=== PATIENT | male | born 1960 | race African-American/Black ===

== ENCOUNTER 2017-02-22 08:31 | Emergency (ER) | payer OTHER ==
[~2017-02-22] VITALS: Ht 190.5 cm; Wt 123.8 kg
[~2017-02-22 08:31] MED LIST: ASPI81TA82 PO; ATEN-102 PO; GABA300C3 PO; HYDR-2768 PO; LANTUS2P SC; LISI40TA PO; METF-324 PO; NAPR500 PO; NIFE30TA2 PO; NOVOLOGP2 SQ; PRAV20 PO
[2017-02-22 08:43] VITALS: BP 121/66; PULSE 63; RESP 16; TEMP 97.4; O2SAT 96
[2017-02-22] MEDS ORDERED: GABA300C5 PO (09:06)
[2017-02-22] MEDS ORDERED: NOVOLOGP2 SQ (09:06)
[2017-02-22] MEDS ORDERED: ATEN50TA PO (09:06)
[2017-02-22] MEDS ORDERED: ASPI81CH CHEW (09:06)
[2017-02-22] MEDS ORDERED: HYDR25TA5 PO (09:06)
[2017-02-22] MEDS ORDERED: LANTINJ SQ (09:06)
[2017-02-22] MEDS ORDERED: PRAV20TA2 PO (09:07)
[2017-02-22] MEDS ORDERED: LISI40TA PO (09:07)
[2017-02-22] MEDS ORDERED: NIFE30TA61 PO (09:07)
--- NOTE | 2017-02-22 09:08 | PD ---
HPI Chief Complaint: Diabetic Time Seen by Provider: 09:01 Travel History International Travel<30 days: No Contact w/Intl Traveler<30days: No Traveled to known affect area: No History of Present Illness HPI Patient presents with concerns of elevated blood sugar. Reports a.m. blood sugar greater than 600 on his home monitor. On arrival blood sugars 362. Admits to poor compliance with Lantus and insulin sliding scale since he has been moving. Denies any nausea vomiting diarrhea or fever. Past medical history for diabetes diabetic neuropathy and blindness. Denies hypertension or hyperlipidemia. States he has been feeling a little under the weather. Patient did eat breakfast. PFSH Past Medical History Cardiovascular Problems: Yes (htn on meds) High Cholesterol: Yes Diabetes: Yes (type 2 with insulin) Patient Takes Glucophage: No Diminished Hearing: No Hypertension: Yes Tetanus Vaccination: Unknown Influenza Vaccination: Yes Past Surgical History Surgical History: No Previous Surgery Social History Alcohol Use: No Tobacco Use: No (former) Substance Use: No Allergies-Medications (Allergen,Severity, Reaction): Coded Allergies: No Known Allergies (Unverified , 02/22/17) Reported Meds & Prescriptions Reported Meds & Active Scripts Active Reported Pravastatin 20 Mg Tab 20 Mg PO DAILY Nifedipine ER 24 HR (Nifedipine) 30 Mg Tab 30 Mg PO DAILY Lisinopril 40 Mg Tab 40 Mg PO DAILY Lantus Solostar Pen Inj (Insulin Glargine) 300 Unit/3 Ml Pen 50 Units SQ DAILY Novolog Inj (Insulin Aspart) 1,000 Unit/10 Ml Vial 0 SQ DIRECTED Sliding Scale as directed. Hydrochlorothiazide 25 Mg Tab 25 Mg PO DAILY Gabapentin 300 Mg Cap 300 Mg PO TID Atenolol 50 Mg Tab 75 Mg PO DAILY Aspirin 81 Mg Chew 81 Mg CHEW DAILY Review of Systems General / Constitutional: No: Fever Eyes: No: Visual changes HENT: No: Headaches Cardiovascular: No: Chest Pain or Discomfort Respiratory: No: Shortness of Breath Gastrointestinal: No: Abdominal Pain Genitourinary: No: Dysuria Musculoskeletal: No: Pain Skin: No Rash Neurologic: No: Weakness Psychiatric: No: Depression Endocrine: No: Polydipsia Hematologic/Lymphatic: No: Easy Bruising Physical Exam Narrative GENERAL: Well-nourished, well-developed patient. SKIN: Focused skin assessment warm/dry. HEAD: Normocephalic. EYES: No scleral icterus. No injection or drainage. NECK: Supple, trachea midline. No JVD or lymphadenopathy. CARDIOVASCULAR: Regular rate and rhythm without murmurs, gallops, or rubs. RESPIRATORY: Breath sounds equal bilaterally. No accessory muscle use. GASTROINTESTINAL: Abdomen soft, non-tender, nondistended. MUSCULOSKELETAL: No cyanosis, or edema. BACK: Nontender without obvious deformity. No CVA tenderness. Data Data Last Documented VS Vital Signs Date Time Temp Pulse Resp B/P Pulse Ox O2 Delivery O2 Flow Rate FiO2 02/22/17 08:43 97.4 63 16 121/66 96 Orders Sodium Chlorid 0.9% 500 Ml Inj (Ns 500 M (02/22/17 09:15) Insulin Human Regular Inj (Novolin R Inj (02/22/17 09:15) Comprehensive Metabolic Panel (02/22/17 09:01) Complete Blood Count With Diff (02/22/17 09:01) Beta Hydroxybutyrate (Acetone) (02/22/17 09:01) Urinalysis - C+S If Indicated (02/22/17 09:01) Blood Glucose (02/22/17 09:01) Blood Glucose (02/22/17 10:01) Ecg Monitoring (02/22/17 09:01) Iv Access Insert/Monitor (02/22/17 09:01) Oximetry (02/22/17 09:01) Labs Laboratory Tests Test 02/22/17 02/22/17 09:27 09:34 White Blood Count 7.2 TH/MM3 Red Blood Count 4.87 MIL/MM3 Hemoglobin 13.5 GM/DL Hematocrit 40.6 % Mean Corpuscular Volume 83.3 FL Mean Corpuscular Hemoglobin 27.7 PG Mean Corpuscular Hemoglobin 33.3 % Concent Red Cell Distribution Width 15.7 % Platelet Count 192 TH/MM3 Mean Platelet Volume 9.6 FL Neutrophils (%) (Auto) 53.0 % Lymphocytes (%) (Auto) 38.4 % Monocytes (%) (Auto) 6.5 % Eosinophils (%) (Auto) 1.1 % Basophils (%) (Auto) 1.0 % Neutrophils # (Auto) 3.7 TH/MM3 Lymphocytes # (Auto) 2.8 TH/MM3 Monocytes # (Auto) 0.5 TH/MM3 Eosinophils # (Auto) 0.1 TH/MM3 Basophils # (Auto) 0.1 TH/MM3 CBC Comment DIFF FINAL Differential Comment Sodium Level 134 MEQ/L Potassium Level 4.8 MEQ/L Chloride Level 104 MEQ/L Carbon Dioxide Level 21.9 MEQ/L Anion Gap 8 MEQ/L Blood Urea Nitrogen 48 MG/DL Creatinine 1.90 MG/DL Estimat Glomerular Filtration 45 ML/MIN Rate Random Glucose 344 MG/DL Calcium Level 9.6 MG/DL Total Bilirubin 0.9 MG/DL Aspartate Amino Transf 9 U/L (AST/SGOT) Alanine Aminotransferase 20 U/L (ALT/SGPT) Alkaline Phosphatase 75 U/L Total Protein 7.8 GM/DL Albumin 3.5 GM/DL B-Hydroxybutyrate 0.50 MMOL/L Urine Collection Type CLEAN CATCH Urine Color YELLOW Urine Turbidity CLEAR Urine pH 6.0 Urine Specific [place] 1.005 Urine Protein NEG mg/dL Urine Glucose (UA) 1000 OR GREATER mg/dL Urine Ketones NEG mg/dL Urine Occult Blood NEG Urine Nitrite NEG Urine Bilirubin NEG Urine Leukocyte Esterase NEG Urine RBC 0-3 /hpf Urine Squamous Epithelial 0-5 /hpf Cells Microscopic Urinalysis Comment CULT NOT INDICATED Urine Collection Time 09:34 [facility] Medical Decision Making Medical Screen Exam Complete: Yes Emergency Medical Condition: Yes Differential Diagnosis Ketoacidosis, HONK, hyperglycemia, medication noncompliance Narrative Course Assessment and plan discussed with patient and daughter at bedside. Urinalysis does not reveal really UTI however there is glycosuria. CBC within normal limits. CMP reveals an area Of 8 and renal insufficiency with a BUN/ creatinine of 48 /1.9 likely secondary to diabetes poor fluid intake. BHB not clinically significant. Repeat blood sugar 285 Diagnosis Primary Impression: Hyperglycemia Additional Impression: Renal insufficiency Patient Instructions: General Instructions Additional Instructions: Encourage good fluid intake, encouraged medication compliance, encouraged follow -up with PCP to discuss her blood sugar log. Return to emergency with any onset of new symptoms. Med/Other Pt SpecificInfo: No Meds Exist/No RX given Disposition: 01 DISCHARGE HOME Condition: Good Matheus Zaman MD Feb 22, 2017 09:08
[2017-02-22] MEDS ORDERED: SODIUM CHLORID 0.9% 500 ML INJ 500 ML IV ONE (09:15)
[2017-02-22] MEDS ORDERED: INSULIN HUMAN REGULAR 1,000 UNITS/10 ML VIAL SQ ONE (09:15)
[2017-02-22 09:40] LABS: AUTOMATED NEUTROPHIL # 3.7 TH/MM3 (1.8-7.7); BASOPHIL # 0.1 TH/MM3 (0-0.2); EOSINOPHIL # 0.1 TH/MM3 (0-0.4); EOSINOPHIL % 1.1 % (0.0-4.0); HEMATOCRIT 40.6 % (39.0-51.0); HEMO FLAGS DIFF FINAL; LYMPH % 38.4 % (9.0-44.0); LYMPHOCYTE # 2.8 TH/MM3 (1.0-4.8); MEAN CELL VOLUME 83.3 FL (80.0-100.0); MEAN CORPUSCULAR HEMOGLOBIN 27.7 PG (27.0-34.0); MEAN CORPUSCULAR HGB CONC 33.3 % (32.0-36.0); MONO % 6.5 % (0.0-8.0); PLATELET COUNT 192 TH/MM3 (150-450); RED BLOOD COUNT 4.87 MIL/MM3 (4.50-5.90); RED CELL DISTRIBUTION WIDTH 15.7 % (11.6-17.2); WHITE BLOOD COUNT 7.2 TH/MM3 (4.0-11.0)
[2017-02-22 09:43] LABS: BLOOD, URINE NEG (NEG); KETONE, URINE NEG (NEG); NITRITE,URINE NEG (NEG)
[2017-02-22 09:49] LABS: BICARBONATE 21.9 MEQ/L (21.0-32.0)
[2017-02-22 09:52] LABS: BLOOD UREA NITROGEN 48 MG/DL (7-18)
[2017-02-22 09:53] LABS: ALT (GPT) 20 U/L (12-78); AST (GOT) 9 U/L (15-37); GLOMERULAR FILTRATION RATE 45 ML/MIN (>89)
[2017-02-22 09:54] LABS: ANION GAP 8 MEQ/L (5-15); CHLORIDE 104 MEQ/L (98-107); POTASSIUM 4.8 MEQ/L (3.5-5.1); SODIUM (NA) 134 MEQ/L (136-145); TOTAL BILIRUBIN ADULT 0.9 MG/DL (0.2-1.0)
[2017-02-22 09:56] LABS: ALKALINE PHOSPHATASE 75 U/L (45-117)
[2017-02-22 09:57] LABS: GLUCOSE,URINE 1000 OR GREATER mg/dL (NEG); METHOD OF COLLECTION CLEAN CATCH; RBC, URINE 0-3 /hpf (0-3); SQUAMOUS EPITHELIAL CELL URINE 0-5 /hpf (0-5); URINE COLOR YELLOW (YELLW/STRAW)
[2017-02-22 09:58] LABS: COMMENT (UR) CULT NOT INDICATED; CULTURE IF INDICATED CULT NOT INDICATED
[2017-02-22 10:47] VITALS: BP 111/68
== END 2017-02-22 10:54 | disposition home or self-care (01) ==
LOC: PHED 08:31
DX: E11.65 Type 2 diabetes mellitus with hyperglycemia (principal); N28.9 Disorder of kidney and ureter, unspecified; Z79.4 Long term (current) use of insulin
CPT/HCPCS: 80053; 81001; 82010; 85025; 96372; 99284; J1815; J7040

== ENCOUNTER 2017-10-01 11:33 | Emergency (ER) | payer OTHER ==
[~2017-10-01] VITALS: Ht 190.5 cm; Wt 124.0 kg
[~2017-10-01 11:33] MED LIST changes: +ASPI-516 CHEW; -ASPI81TA82 PO; -ATEN-102 PO; +ATEN50TA PO; -GABA300C3 PO; +GABA300C5 PO; -HYDR-2768 PO; +HYDR25TA5 PO; +LANTINJ SQ; -LANTUS2P SC; -METF-324 PO; -NAPR500 PO; -NIFE30TA2 PO; +NIFE30TA61 PO; -PRAV20 PO; +PRAV20TA2 PO
[2017-10-01 11:42] VITALS: BP 135/72; PULSE 57; RESP 16; TEMP 97.6; O2SAT 97
[2017-10-01] MEDS ORDERED: SODIUM CHLOR 0.9% 1000 ML INJ 1,000 ML IV ONE (12:00)
--- NOTE | 2017-10-01 12:15 | PD ---
HPI Chief Complaint: Cold / Flu Symptoms Time Seen by Provider: 11:44 Travel History International Travel<30 days: No Contact w/Intl Traveler<30days: No Traveled to known affect area: No History of Present Illness HPI 57-year-old male presents to the ED for evaluation of colic symptoms since . Per patient is a type I diabetic and has been having cough, runny nose and weakness as well as nausea and vomiting diarrhea since . Patient comes here with daughter with Symptoms since Friday. Patient Got the Symptoms First. Per Patient He Does Not Check His Sugars He Does Not Have a Glucometer. He Does Give Himself Insulin. Patient Has Been Urinating More Frequently Than Usual. Patient Has Been Able to Keep Fluids down but He Is Not Sure If He Has Been Dehydrated. He States That He Feels Nauseous Sometimes and Vomits. Denies any abdominal pain. Denies any chest pain or shortness of breath. Has not seen anybody for this. He did got the flu shot. Denies any recent travel. No other medical issues. PFSH Past Medical History Cardiovascular Problems: Yes (htn on meds) High Cholesterol: Yes Diabetes: Yes (type 2 with insulin) Patient Takes Glucophage: No Diminished Hearing: No Hypertension: Yes Tetanus Vaccination: Unknown Influenza Vaccination: Yes Social History Alcohol Use: No Tobacco Use: No (former) Substance Use: No Allergies-Medications (Allergen,Severity, Reaction): Coded Allergies: No Known Allergies (Unverified Adverse Reaction, Unknown, 10/01/17) Reported Meds & Prescriptions Reported Meds & Active Scripts Active Tessalon Perles (Benzonatate) 100 Mg Cap 200 Mg PO TID PRN Amoxicillin 875 Mg Tab 875 Mg PO BID 10 Days Reported Pravastatin 20 Mg Tab 20 Mg PO DAILY Nifedipine ER 24 HR (Nifedipine) 30 Mg Tab 30 Mg PO DAILY Lisinopril 40 Mg Tab 40 Mg PO DAILY Lantus Solostar Pen Inj (Insulin Glargine) 300 Unit/3 Ml Pen 50 Units SQ DAILY Novolog Inj (Insulin Aspart) 1,000 Unit/10 Ml Vial 0 SQ DIRECTED Sliding Scale as directed. Hydrochlorothiazide 25 Mg Tab 25 Mg PO DAILY Gabapentin 300 Mg Cap 300 Mg PO TID Atenolol 50 Mg Tab 75 Mg PO DAILY Aspirin 81 Mg Chew 81 Mg CHEW DAILY Review of Systems Except as stated in HPI: all other systems reviewed are Neg Physical Exam Narrative GENERAL: Well-nourished, well-developed patient in no apparent distress. SKIN: Warm and dry. HEAD: Atraumatic. Normocephalic. EYES: Pupils equal and round reactive to light and accommodation. No scleral icterus. No injection or drainage. ENT: No nasal bleeding or discharge. Mucous membranes pink and moist. TMs are clear with no sign of infection or perforation. No mastoid tenderness. Ear canals are intact bilaterally. No lymphadenopathy. Nostril mucosa is red and moist with clear mucus noted. No sinus tenderness to palpation noted. Tonsils are not enlarged or swollen. No ulvua Deviation. Tongue is midline. NECK: Trachea midline. No JVD. No meningeal signs noted CARDIOVASCULAR: Regular rate and rhythm. RESPIRATORY: No accessory muscle use. Clear to auscultation. Breath sounds equal bilaterally. GASTROINTESTINAL: Abdomen soft, non-tender, nondistended. Hepatic and splenic margins not palpable. MUSCULOSKELETAL: Extremities without clubbing, cyanosis, or edema. No obvious deformities. Full range of motion of the upper and lower extremities bilaterally. 2+ pulses bilaterally. NEUROLOGICAL: Awake and alert. No obvious cranial nerve deficits. Motor grossly within normal limits. Five out of 5 muscle strength in the arms and legs. Normal speech. PSYCHIATRIC: Appropriate mood and affect; insight and judgment normal. Data Data Last Documented VS Vital Signs Date Time Temp Pulse Resp B/P (MAP) Pulse Ox O2 Delivery O2 Flow Rate FiO2 10/01/17 12:44 16 97 Room Air 10/01/17 11:42 97.6 57 135/72 (93) Orders Orders Complete Blood Count With Diff (10/01/17 11:56) Comprehensive Metabolic Panel (10/01/17 11:56) Blood Culture (10/01/17 11:56) Lipase (10/01/17 11:56) Magnesium (Mg) (10/01/17 11:56) Beta Hydroxybutyrate (Acetone) (10/01/17 11:56) Chest, Single Ap (10/01/17 11:56) Iv Access Insert/Monitor (10/01/17 11:56) Ecg Monitoring (10/01/17 11:56) Oximetry (10/01/17 11:56) Blood Glucose (10/01/17 11:56) Influenzae A/B Antigen (10/01/17 11:56) Sodium Chlor 0.9% 1000 Ml Inj (Ns 1000 M (10/01/17 12:00) Ed Discharge Order (10/01/17 13:12) Labs Laboratory Tests Test 10/01/17 12:28 White Blood Count 4.8 TH/MM3 Red Blood Count 4.71 MIL/MM3 Hemoglobin 12.8 GM/DL Hematocrit 39.5 % Mean Corpuscular Volume 83.8 FL Mean Corpuscular Hemoglobin 27.3 PG Mean Corpuscular Hemoglobin Concent 32.5 % Red Cell Distribution Width 14.9 % Platelet Count 169 TH/MM3 Mean Platelet Volume 8.7 FL Neutrophils (%) (Auto) 32.9 % Lymphocytes (%) (Auto) 57.3 % Monocytes (%) (Auto) 7.5 % Eosinophils (%) (Auto) 1.4 % Basophils (%) (Auto) 0.9 % Neutrophils # (Auto) 1.6 TH/MM3 Lymphocytes # (Auto) 2.7 TH/MM3 Monocytes # (Auto) 0.4 TH/MM3 Eosinophils # (Auto) 0.1 TH/MM3 Basophils # (Auto) 0.0 TH/MM3 CBC Comment DIFF FINAL Differential Comment Blood Urea Nitrogen 13 MG/DL Creatinine 1.40 MG/DL Random Glucose 153 MG/DL Total Protein 7.4 GM/DL Albumin 2.8 GM/DL Calcium Level 8.4 MG/DL Magnesium Level 2.1 MG/DL Alkaline Phosphatase 76 U/L Aspartate Amino Transf (AST/SGOT) 33 U/L Alanine Aminotransferase (ALT/SGPT) 35 U/L Total Bilirubin 0.8 MG/DL Sodium Level 141 MEQ/L Potassium Level 3.6 MEQ/L Chloride Level 110 MEQ/L Carbon Dioxide Level 23.7 MEQ/L Anion Gap 7 MEQ/L Estimat Glomerular Filtration Rate 63 ML/MIN Lipase 184 U/L MDM Medical Decision Making Medical Screen Exam Complete: Yes Emergency Medical Condition: Yes Medical Record Reviewed: Yes Interpretation(s) CBC & BMP Diagram 10/01/17 12:28 Total Protein 7.4, Albumin 2.8 L, Calcium Level 8.4 L, Magnesium Level 2.1, Alkaline Phosphatase 76, Aspartate Amino Transf (AST/SGOT) 33, Alanine Aminotransferase (ALT/SGPT) 35, Total Bilirubin 0.8 Last Impressions Chest X-Ray 10/01/17 1786 Signed Impressions: Service Date/Time: Sunday, October 01, 2017 12:02 - CONCLUSION: No acute disease. Skyler Grajeda MD lipase WNL Differential Diagnosis Hyperglycemia versus dehydration versus DKA versus influenza versus pneumonia versus URI versus otitis media Narrative Course 57-year-old male presents to the ED for evaluation of cold like symptoms. Patient was properly examined and was found to have signs and symptoms consistent with appears to be otitis media. Patient also appear to have polyuria as well as nausea and vomiting and some diarrhea. He is a type I diabetic and she does not check his sugars secondary to not having a glucometer. We will do basic labs the patient IV fluids to rule out any sign of dehydration or DKA. Labs and imaging showed no significant disease. Sugar appears to be within normal limits. More importantly no sign of DKA. Slight dehydration. Patient was given IV fluids. Patient was told results. Patient does appear to have otitis media on exam. Will treat with amoxicillin and Tessalon Perles. Told to follow-up with PCP. See ED if worsening symptoms. OTC meds as needed. Diagnosis Primary Impression: Otitis media Qualified Codes: H66.002 - Acute suppurative otitis media without spontaneous rupture of ear drum, left ear Additional Impression: Dehydration, mild Patient Instructions: General Instructions Additional Instructions: Motrin and Tylenol for pain and fever. You can use [id number] antihistamine as well as well as Mucinex as needed for runny nose and congestion. Cough drops for cough as needed. Drink plenty of fluids. Follow-up with PCP. See ED for worsening symptoms. Med/Other Pt SpecificInfo: Prescription(s) given Scripts Benzonatate (Tessalon Perles) 100 Mg Cap 200 MG PO TID Y for COUGH, #20 CAP 0 Refills Prov: Marleny Hawthorne MD 10/01/17 Amoxicillin (Amoxicillin) 875 Mg Tab 875 MG PO BID for Infection for 10 Days, #20 TAB 0 Refills Prov: Marleny Hawthorne MD 10/01/17 Disposition: 01 DISCHARGE HOME Condition: Stable Ayden Jackson Oct 01, 2017 12:15
--- NOTE | 2017-10-01 12:19 | RADRPT ---
EXAM DATE/TIME: 10/01/2017 12:02 [facility] COMPARISON: No previous studies available for comparison. INDICATIONS : Fever, cough, sore throat. MEDICAL HISTORY : Hypercholesterolemia. Hypertension. Diabetes mellitus type 2. SURGICAL HISTORY : None. ENCOUNTER: Initial ACUITY: 1 week PAIN SCORE: 0/10 LOCATION: Bilateral chest FINDINGS: A single view of the chest demonstrates the lungs to be symmetrically aerated without evidence of mas s, infiltrate or effusion. The cardiomediastinal contours are unremarkable. Osseous structures are intact. CONCLUSION: No acute disease. Skyler Grajeda MD on October 01, 2017 at 12:17 Board Certified Radiologist. This report was verified electronically.
[2017-10-01 12:42] VITALS: O2SAT 97
[2017-10-01 12:49] LABS: AUTOMATED NEUTROPHIL # 1.6 TH/MM3 (1.8-7.7); BASOPHIL % 0.9 % (0.0-2.0); EOSINOPHIL # 0.1 TH/MM3 (0-0.4); EOSINOPHIL % 1.4 % (0.0-4.0); HEMATOCRIT 39.5 % (39.0-51.0); HEMOGLOBIN 12.8 GM/DL (13.0-17.0); LYMPH % 57.3 % (9.0-44.0); LYMPHOCYTE # 2.7 TH/MM3 (1.0-4.8); MEAN CELL VOLUME 83.8 FL (80.0-100.0); MEAN CORPUSCULAR HEMOGLOBIN 27.3 PG (27.0-34.0); MEAN CORPUSCULAR HGB CONC 32.5 % (32.0-36.0); MEAN PLATELET VOLUME 8.7 FL (7.0-11.0); MONO % 7.5 % (0.0-8.0); MONOCYTE # 0.4 TH/MM3 (0-0.9); NEUT % 32.9 % (16.0-70.0); PLATELET COUNT 169 TH/MM3 (150-450); RED BLOOD COUNT 4.71 MIL/MM3 (4.50-5.90); RED CELL DISTRIBUTION WIDTH 14.9 % (11.6-17.2); WHITE BLOOD COUNT 4.8 TH/MM3 (4.0-11.0)
[2017-10-01 12:57] LABS: CHLORIDE 110 MEQ/L (98-107); SODIUM (NA) 141 MEQ/L (136-145)
[2017-10-01 13:02] LABS: CALCIUM 8.4 MG/DL (8.5-10.1)
[2017-10-01 13:03] LABS: ALBUMIN 2.8 GM/DL (3.4-5.0); BICARBONATE 23.7 MEQ/L (21.0-32.0); BLOOD UREA NITROGEN 13 MG/DL (7-18); GLUCOSE,RANDOM 153 MG/DL (74-106); MAGNESIUM 2.1 MG/DL (1.5-2.5)
[2017-10-01 13:06] LABS: ALT (GPT) 35 U/L (12-78); AST (GOT) 33 U/L (15-37); GLOMERULAR FILTRATION RATE 63 ML/MIN (>89)
[2017-10-01 13:07] LABS: TOTAL BILIRUBIN ADULT 0.8 MG/DL (0.2-1.0); TOTAL PROTEIN 7.4 GM/DL (6.4-8.2)
[2017-10-01 13:09] LABS: ALKALINE PHOSPHATASE 76 U/L (45-117)
[2017-10-01] MEDS ORDERED: AMOX875T PO (13:11)
[2017-10-01] MEDS ORDERED: BENZ100 PO (13:11)
[2017-10-01 13:14] VITALS: BP 156/79; PULSE 50; RESP 16; O2SAT 98
== END 2017-10-01 13:45 | disposition home or self-care (01) ==
LOC: PHED 11:33
DX: H66.002 Acute suppurative otitis media without spontaneous rupture of ear drum, left ear (principal); E86.0 Dehydration; E10.9 Type 1 diabetes mellitus without complications; E78.00 Pure hypercholesterolemia, unspecified; I10 Essential (primary) hypertension; Z87.891 Personal history of nicotine dependence
CPT/HCPCS: 71045; 80053; 82010; 83690; 83735; 85025; 87040; 87804; 96360; 99284; J7030